=== PATIENT | male | born 1945 | race Caucasian/White ===

== ENCOUNTER 2018-07-26 08:00 | Inpatient (IN) | payer OTHER ==
[~2018-07-26] VITALS: Ht 172.7 cm; Wt 72.6 kg
[2018-07-26] MEDS ORDERED: CRESTOR5 MG (11:08)
[2018-07-26] MEDS ORDERED: COSOPT PF EYE1 EACH OP (11:08)
[2018-07-26] MEDS ORDERED: ZANTAC300 MG PO (11:09)
[2018-07-26] MEDS ORDERED: PROTONIX40 M1 PO (11:09)
[2018-07-26] MEDS ORDERED: SYSTANE 0.3-0.1 EACH OP (11:10)
[2018-08-02] MEDS ORDERED: DUI500 PO (15:55)
[2018-08-02] MEDS ORDERED: ELIQUIS2.5 MG PO (15:55)
[2018-08-02] MEDS ORDERED: PERCOCET 5-3251 EACH PO (15:55)
== END 2018-08-02 07:58 | DRG 470 ==
LOC: SURG 07-31 06:20 → O/R 07-31 06:20 → SURH 07-31 07:00 → SURG 07-31 17:09
PROVIDERS: ADMIT Orthopaedic Surgery
PROC: 0MNP0ZZ Release Left Knee Bursa and Ligament, Open Approach (ICD-10-PCS; 2018-07-31)
PROC: 0SRD0J9 Replacement of Left Knee Joint with Synthetic Substitute, Cemented, Open Approach (ICD-10-PCS; principal; 2018-07-31 07:00)
DX: M17.12 Unilateral primary osteoarthritis, left knee (principal); D62 Acute posthemorrhagic anemia; M22.12 Recurrent subluxation of patella, left knee; E78.00 Pure hypercholesterolemia, unspecified; H40.89 Other specified glaucoma

== ENCOUNTER 2022-12-21 07:30 | Inpatient (IN) | payer OTHER ==
[~2022-12-21] VITALS: Ht 172.7 cm; Wt 69.4 kg
[~2022-12-21 07:30] MED LIST: COSOPT PF EYE1 EACH OP; CRESTOR5 MG; DUI500 PO; ELIQUIS2.5 MG PO; PERCOCET 5-3251 EACH PO; PROTONIX40 M1 PO; SYSTANE 0.3-0.1 EACH OP; ZANTAC300 MG PO
[2022-12-21] MEDS ORDERED: VITAMIN D PO (09:12)
[2022-12-21] MEDS ORDERED: ZESTRIL2.5 MG PO (09:12)
[2022-12-21] MEDS ORDERED: MAGNESIUM PO (09:13)
[2022-12-21] MEDS ORDERED: VITAMIN C100 MG PO (09:13)
[2022-12-21 09:37] LABS: HEMATOCRIT 45.6 % (39.0-48.0); HEMOGLOBIN 15.8 g/dL (13-16.00); MEAN CELL VOLUME 90.6 fL (80.0-100.00); MEAN CORPUSCULAR HEMOGLOBIN 31.3 pg (27.00-32.0); MEAN CORPUSCULAR HGB CONC 34.6 g/dl (32.0-36.0); PLATELET COUNT 158 K/uL (150-450); RED BLOOD COUNT 5.03 M/uL (4.00-6.00); RED CELL DISTRIBUTION WIDTH 13.6 % (11.5-14.5)
[2022-12-21 09:37] LABS: PH,URINE 5.5 (5.0-8.0); URINE APPEARANCE Clear; URINE BILIRRUBIN Negative (NEGATIVE); URINE BLOOD Negative; URINE COLOR Dark Yellow; URINE GLUCOSE Negative (NEGATIVE); URINE LEUKOCYTE Negative; URINE NITRATE Negative; URINE PROTEIN Negative (NEGATIVE); URINE UROBILINOGEN 0.2 E.U./dl
[2022-12-21 09:42] LABS: URINE BACTERIA 8.8 uL (0.0-1933); URINE RBC 3.8 uL (0.0-20.8)
[2022-12-21 09:47] LABS: URINE EPITHELIAL CELLS 0.6 uL (0.0-38.8); URINE WBC 1.2 uL (0.0-23.2)
[2022-12-21 10:04] LABS: INR 1.03; PARTIAL THROMBOPLASTIN TIME 29.2 SECONDS (22.0-34.0); PROTHROMBIN TIME 10.8 SECONDS (9.0-11.5)
[2022-12-21 10:11] LABS: BILIRUBIN TOTAL 2.74 mg/dL (0.3-1.2); CALCIUM 9.5 mg/dL (8.5-10.1); CREATININE SERUM 0.78 mg/dL (0.70-1.30); GFR 97.03; GLOBULINA 3.8 G/DL (2.4-3.5); POTASSIUM 4.26 mEq/L (3.5-5.1); TOTAL PROTEIN 7.8 gm/dL (6.4-8.2)
[2022-12-28 07:01] LABS: HEMATOCRIT 36.5 % (39.0-48.0); HEMOGLOBIN 12.7 g/dL (13-16.00); MEAN CORPUSCULAR HEMOGLOBIN 31.3 pg (27.00-32.0); MEAN CORPUSCULAR HGB CONC 34.8 g/dl (32.0-36.0); RED BLOOD COUNT 4.05 M/uL (4.00-6.00); RED CELL DISTRIBUTION WIDTH 13.6 % (11.5-14.5)
[2022-12-28 07:30] LABS: PLATELET COUNT 109 K/uL (150-450)
[2022-12-28] MEDS ORDERED: PERCOCET 5-3251 EACH PO (07:35)
[2022-12-28] MEDS ORDERED: ELIQUIS2.5 MG PO (07:35)
[2022-12-28] MEDS ORDERED: DUI500 PO (07:35)
[2022-12-29 06:48] LABS: HEMATOCRIT 32.5 % (39.0-48.0); HEMOGLOBIN 11.5 g/dL (13-16.00); MEAN CELL VOLUME 89.4 fL (80.0-100.00); MEAN CORPUSCULAR HEMOGLOBIN 31.5 pg (27.00-32.0); MEAN CORPUSCULAR HGB CONC 35.2 g/dl (32.0-36.0); RED BLOOD COUNT 3.64 M/uL (4.00-6.00); RED CELL DISTRIBUTION WIDTH 13.5 % (11.5-14.5)
[2022-12-29 07:19] LABS: PLATELET COUNT 92 K/uL (150-450)
[2022-12-29 19:55] LABS: ALBUMIN 2.6 gm/dL (3.4-5.0); BILIRUBIN TOTAL 2.62 mg/dL (0.3-1.2); CREATININE SERUM 0.82 mg/dL (0.70-1.30); GFR 91.59; GLOBULINA 3.4 G/DL (2.4-3.5); MAGNESIUM 2.2 mg/dL (1.8-2.4); POTASSIUM 4.67 mEq/L (3.5-5.1)
[2022-12-29 20:07] LABS: PHOSPHOROUS 1.7 mg/dL (2.5-4.9)
[2022-12-29 20:23] LABS: CKMB 1.4 NG/ML (0.5-3.6)
[2022-12-29 22:20] LABS: HEMOGLOBIN 10.6 g/dL (13-16.00); MEAN CELL VOLUME 89.3 fL (80.0-100.00); MEAN CORPUSCULAR HEMOGLOBIN 31.6 pg (27.00-32.0); MEAN CORPUSCULAR HGB CONC 35.4 g/dl (32.0-36.0); RED BLOOD COUNT 3.36 M/uL (4.00-6.00); RED CELL DISTRIBUTION WIDTH 13.3 % (11.5-14.5)
[2022-12-29 22:24] LABS: PLATELET COUNT 96 K/uL (150-450)
[2022-12-30 04:27] LABS: HEMATOCRIT 31.4 % (39.0-48.0); HEMOGLOBIN 10.9 g/dL (13-16.00); MEAN CORPUSCULAR HEMOGLOBIN 31.3 pg (27.00-32.0); MEAN CORPUSCULAR HGB CONC 34.8 g/dl (32.0-36.0); RED CELL DISTRIBUTION WIDTH 13.1 % (11.5-14.5)
[2022-12-30 04:53] LABS: ALBUMIN 2.4 gm/dL (3.4-5.0); BILIRUBIN TOTAL 2.2 mg/dL (0.3-1.2); BILIRUBIN,CONJUGATED 0.3 mg/dL (0.0-0.2); BILIRUBIN,UNCONJUGATED 1.9 mg/dL (0.0-0.6); CALCIUM 7.6 mg/dL (8.5-10.1); CREATININE SERUM 0.63 mg/dL (0.70-1.30); GFR 124.15; POTASSIUM 3.74 mEq/L (3.5-5.1); TOTAL PROTEIN 5.3 gm/dL (6.4-8.2)
[2022-12-30 05:00] LABS: CKMB 1.1 NG/ML (0.5-3.6)
[2022-12-30 05:33] LABS: PHOSPHOROUS 1.6 mg/dL (2.5-4.9)
[2022-12-30 06:10] LABS: PLATELET COUNT 103 K/uL (150-450)
[2022-12-30] MEDS ORDERED: TOPROL XL50 M1 PO (13:31)
== END 2022-12-30 18:00 | DRG 470 ==
LOC: O/R 12-27 05:30 → SURH 12-27 05:30
PROVIDERS: Internal Medicine; ADMIT Orthopaedic Surgery; ATTEND Orthopaedic Surgery
PROC: 0MNN0ZZ Release Right Knee Bursa and Ligament, Open Approach (ICD-10-PCS; 2022-12-27)
PROC: 0SRC0J9 Replacement of Right Knee Joint with Synthetic Substitute, Cemented, Open Approach (ICD-10-PCS; principal; 2022-12-27 07:00)
PROC: BW40ZZZ Ultrasonography of Abdomen (ICD-10-PCS; 2022-12-29)
PROC: 4A12X4Z Monitoring of Cardiac Electrical Activity, External Approach (ICD-10-PCS; 2022-12-29)
DX: M17.11 Unilateral primary osteoarthritis, right knee (principal); D62 Acute posthemorrhagic anemia; I48.92 Unspecified atrial flutter; M22.11 Recurrent subluxation of patella, right knee; I10 Essential (primary) hypertension; E78.49 Other hyperlipidemia

== ENCOUNTER 2024-01-19 07:03 | Outpatient (CLI) | payer OTHER ==
[~2024-01-19 07:03] MED LIST changes: +MAGNESIUM PO; +TOPROL XL50 M1 PO; +VITAMIN C100 MG PO; +VITAMIN D PO; +ZESTRIL2.5 MG PO
== END 2024-01-19 07:04 | disposition home or self-care (01) ==
LOC: NUCLEAR 07:03
PROVIDERS: ATTEND Internal Medicine
DX: I20.9 Angina pectoris, unspecified (principal); I48.0 Paroxysmal atrial fibrillation; I11.9 Hypertensive heart disease without heart failure
CPT/HCPCS: 78452; 93017; A9500